=== PATIENT | female | born 1960 | race Caucasian/White ===

== ENCOUNTER → 2022-04-27 | Outpatient (CLI) | payer BC, OTHER | LOC: M PLARAD 09:46 | PROVIDERS: ATTEND Internal Medicine Gastroenterology | DX: D18.03 Hemangioma of intra-abdominal structures (principal); K76.89 Other specified diseases of liver; N28.1 Cyst of kidney, acquired ==

== ENCOUNTER → 2022-07-29 | Outpatient (REF) | payer BC, OTHER | LOC: M WUC 18:57 | PROVIDERS: ATTEND Physician Assistant | DX: R30.0 Dysuria (principal) ==